=== PATIENT | female | born 1975 | race Caucasian/White ===

== ENCOUNTER 2024-05-06 13:37 | Outpatient (CLI) | payer OTHER | END 2024-05-06 13:38 | disposition home or self-care (01) | LOC: CSHMAMMO 13:37 | PROVIDERS: ATTEND Nurse Practitioner Family | DX: Z12.31 Encounter for screening mammogram for malignant neoplasm of breast (principal) | CPT/HCPCS: 77063; 77067 ==

== ENCOUNTER 2025-06-17 11:38 | Outpatient (CLI) | payer BC | END 2025-06-17 11:39 | disposition home or self-care (01) | LOC: CSHMAMMO 11:38 | PROVIDERS: ATTEND Nurse Practitioner Family | DX: Z12.31 Encounter for screening mammogram for malignant neoplasm of breast (principal) | CPT/HCPCS: 77063; 77067 ==